=== PATIENT | male | born 1950 | race Caucasian/White ===

== ENCOUNTER 2017-08-25 02:52 | Inpatient (IN) | payer OTHER, MEDICARE ==
[~2017-08-25] VITALS: Ht 170.2 cm; Wt 74.9 kg
--- NOTE | 2017-08-25 02:57 | ED NEURO DEFICIT/STROKE ---
See Addendum History of Present Illness General Chief Complaint: Neuro Symptoms/ Deficit Stated Complaint: STROKE ALERT? Source: patient, EMS Exam Limitations: no limitations Vital Signs & Intake/Output Vital Signs & Intake/Output Vital Signs Date Time Temp Pulse Resp B/P B/P Pulse O2 O2 Flow FiO2 Mean Ox Delivery Rate 08/25 422 97.0 60 20 135/70 99 Room Air 08/25 309 97.5 64 20 181/78 98 Nasal 2.0L Cannula Allergies Coded Allergies: No Known Allergies (08/25/17) Reconcile Medications Aspirin (Aspirin*) 81 MG TAB.CHEW 1 TAB PO DAILY HEART (Reported) Atenolol 50 MG TABLET 1 TAB PO DAILY HTN (Reported) Atorvastatin Calcium (Lipitor) 10 MG TABLET 1 TAB PO DAILY CHOL (Reported) Glipizide 5 MG TABLET 1 TAB PO BID DM (Reported) Lisinopril 10 MG TABLET 1 TAB PO DAILY HTN (Reported) Sitagliptin Phos/Metformin HCl (Janumet 50-500 MG Tablet) 50 MG-500 MG TABLET 1 TAB PO DAILY DM (Reported) Triage Nurses Notes Reviewed? yes HPI: Patient presents for evaluation of left facial droop. patient last seen normal at 12:30AM. HX OF CVA. Patient himself offers no complaint at this time. With further questioning however the patient was not observed to be normal at 12:30 but he did answer a question normally at that time. The last time he was seen walking or engaging in any physical activity was about 5 to 6:00 in the afternoon. It seems that time of onset of symptoms sometime between 6 PM and 12 :30 AM. Past History Medical History Any Pertinent Medical History? see below for history Surgical History Surgical History: non-contributory Psychosocial History Tobacco Use: Current Daily Use Family History Hx Contributory? No Review of Systems Review of Systems Constitutional: Reports: no symptoms. EENTM: Reports: no symptoms. Respiratory: Reports: no symptoms. Cardiovascular: Reports: no symptoms. GI: Reports: no symptoms. Genitourinary: Reports: no symptoms. Musculoskeletal: Reports: no symptoms. Skin: Reports: no symptoms. Neurological/Psychological: Reports: see HPI. Hematologic/Endocrine: Reports: no symptoms. Immunologic/Allergic: Reports: no symptoms. All Other Systems: Reviewed and Negative Physical Exam Physical Exam General Appearance: see below Cranial Nerves: SEE BELOW Comments: Gen.: Well-nourished, well-developed, no acute respiratory distress. Head: Normocephalic, atraumatic. Eyes: Normal inspection bilaterally Ears: Normal inspection bilaterally Nose: Normal inspection Throat/mouth : Moist mucosa Neck: Supple, full range of motion, no goiter Heart: Regular rate and rhythm, no murmurs rubs or gallops Lungs: Clear to auscultation bilaterally with normal air entry Chest: Nontender Back: Normal range of motion Abdomen: Soft, nontender, nondistended, normal bowel sounds Extremities: Normal range of motion grossly, equal radial pulses, no cyanosis clubbing or edema Neurologic: Cranial nerves grossly intact, speech is clear Skin: warm and dry Psychiatric: Calm, cooperative, no apparent delusions or hallucinations Core Measures CVA/TIA Diagnosis: Yes NIH Stroke Scale NIH Stroke Scale Response Value Level of Consciousness alert 0 LOC Questions answers both correctly 0 LOC Commands obeys both correctly 0 Best Gaze normal 0 Visual Shetty no visual loss 0 Facial Paresis minor 1 Motor Arm - Left drift 1 Motor Arm - Right no drift 0 Motor Leg - Left no drift 0 Motor Leg - Right no drift 0 Limb Ataxia no ataxia 0 Sensory normal 0 Best Language no aphasia 0 Dysarthria mild/mod slurring words 1 Extinction and Inattention no neglect 0 Total 3 Sepsis Present: No Sepsis Focused Exam Completed? No Progress Differential Diagnosis: Toledo's Palsy, electrolyte imbalance, hypoglycemia, stroke Plan of Care: Orders Procedure Date/time Status Heart Healthy Diet 08/[address] in observation 08/25 0541 Active Misc Message 08/25 0532 Active ED Holding Orders 08/25 0532 Active Vital Signs 08/25 0532 Active Code Status 08/25 0532 Active Add-on Test (ER Only) 08/25 0319 Active TROPONIN LEVEL 08/25 0313 Complete ETHANOL 08/25 0313 Complete COMPREHENSIVE METABOLIC PANEL 08/25 0313 Complete PARTIAL THROMBOPLASTIN TIME 08/25 0256 Complete PROTHROMBIN TIME 08/25 0256 Complete CBC WITHOUT DIFFERENTIAL 08/25 0256 Complete EKG 08/25 0256 Active Laboratory Tests 08/25/17 0330: Anion Gap 13, Estimated GFR > 60, BUN/Creatinine Ratio 18.9, Glucose 276 H, Calcium 9.4, Total Bilirubin 0.5, AST 18, ALT 34, Alkaline Phosphatase 65, Troponin I < 0.01, Total Protein 6.1 L, Albumin 3.8, Globulin 2.3, Albumin/ Globulin Ratio 1.7, PT 10.6, INR 0.97, APTT 26, Serum Alcohol < 10.0 08/25/17 0313: CBC w Diff MAN DIFF ORDERED, RBC 4.57 L, MCV 95.9 H, MCH 31.9 H, MCHC 33.3, RDW 13.4, MPV 9.4, Gran % 53.8, Lymphocytes % 36.2, Monocytes % 6.9, Eosinophils % 2.4, Basophils % 0.7, Absolute Granulocytes 5.5, Segmented Neutrophils 52, Absolute Lymphocytes 3.7 H, Lymphocytes 38, Monocytes 5, Absolute Monocytes 0.7 H, Eosinophils 5, Absolute Eosinophils 0.2, Absolute Basophils 0.1, Platelet Estimate ADEQUATE, Polychromasia 1+, Poikilocytosis 1+, Ovalocytes FEW, [place] Cells 1+, Fld Total RBCs Counted 100 08/25/17 025: Sodium Cancelled, Potassium Cancelled, Chloride Cancelled, Carbon Dioxide Cancelled, Anion Gap Cancelled, BUN Cancelled, Creatinine Cancelled, BUN/ Creatinine Ratio Cancelled, Glucose Cancelled, Calcium Cancelled, Total Bilirubin Cancelled, AST Cancelled, ALT Cancelled, Alkaline Phosphatase Cancelled, Total Protein Cancelled, Albumin Cancelled, Globulin Cancelled, Albumin/Globulin Ratio Cancelled Diagnostic Imaging: Discussed w/RAD: CT Scan. Radiology Impression: PATIENT: NEELAM FARNSWORTH PRESENT AGE: 66 PATIENT ACCOUNT NO: [id number] : 48 LOCATION: [facility] ORDERING PHYSICIAN: Damion Toledo MD SERVICE DATE: 08/25/17 EXAM TYPE: CAT - CT HEAD WO IV CONTRAST EXAMINATION: CT HEAD WITHOUT CONTRAST CLINICAL INFORMATION: Left facial droop. COMPARISON: None TECHNIQUE: Contiguous axial imaging was performed from the skull base to vertex without intravenous administration of contrast. DLP: 646.12 mGy-cm FINDINGS: There is focal encephalomalacia from an old infarct of the left temporal occipital lobe. There is no evidence of acute intracranial hemorrhage or acute territorial infarction. No abnormal mass effect or midline shift is seen. Santos to white matter differentiation is well preserved. No extra- axial fluid collections are identified. There is atrophy with prominence of the ventricles and the sulci and hypodensity of the periventricular white matter due to chronic small vessel ischemic disease. There is vascular calcifications of the internal carotid arteries bilaterally. The osseous structures and soft tissues are normal. The mastoid air cells and visualized portions of the paranasal sinuses are well aerated. IMPRESSION: No acute intracranial pathology. This critical result was discussed with Dr. Toledo on 08/25/2017, 3:07 AM and it was ascertained that the content and urgency of the report was understood at the time of direct communication. DICTATED BY: Paul Lozano MD DATE/TIME DICTATED:303 CENTER MEDICAL SPECIALIST:DEYSI DATE/TIME TRANSCRIBED:08/25/17303 CONFIDENTIAL, DO NOT COPY WITHOUT APPROPRIATE AUTHORIZATION. <Electronically signed in Other Vendor System> SIGNED BY: Paul Lozano MD 08/25/17311 Initial ED EKG: NSR, rate (59) Comments: 08/25/2017 3:09:12 AM NO ACUTE FINDINGS ON HEAD CT. 08/25/2017 3:19:14 AM patient's case discussed with Dr. Jacobs who feels given the uncertain time of onset that this patient is not a TPA candidate. He would recommend however a CTA with possible endovascular intervention. 08/25/2017 4:31:03 AM patient is at baseline with no appreciable neurologic deficit.family agrees. Departure Departure Disposition: STILL A PATIENT Condition: Stable Clinical Impression Primary Impression: TIA (transient ischemic attack) Qualifiers: Transient cerebral ischemia type: unspecified Qualified Code: G45.9 - Transient cerebral ischemic attack, unspecified Departure Forms: Customer Survey General Discharge Information Admission Note Documentation of Exam: Documentation of any treatments & extenuating circumstances including Concerns Regarding Discharge (functional status, medication knowledge or non-compliance, living conditions, etc.) that warrant an admission rather than observation: Observation Note Spoke With: Angela Webber MD Patient In: Non-ED OBS Care Area Rationale for Observation: My rational for observation is as follows: Patient presents after transient left facial droop and left motor weakness. He has a history of a prior CVA. This patient is at high risk of a completed stroke and requires hospitalization for expedited evaluation of reversible causes such as carotid artery disease or cardioembolic phenomenon. Patient should have continuous cardiac monitoring for the possibility of transient atrial fibrillation. Neurology consult should be obtained. Medical management should be optimized. Cardiology consultation to be considered for echocardiogram. If symptoms recur then physical therapy consultation to be considered. .
--- NOTE | 2017-08-25 03:12 | CT SCAN REPORT ---
EXAMINATION: CT HEAD WITHOUT CONTRAST CLINICAL INFORMATION: Left facial droop. COMPARISON: None TECHNIQUE: Contiguous axial imaging was performed from the skull base to vertex without intravenous administration of contrast. DLP: 646.12 mGy-cm FINDINGS: There is focal encephalomalacia from an old infarct of the left temporal occipital lobe. There is no evidence of acute intracranial hemorrhage or acute territorial infarction. No abnormal mass effect or midline shift is seen. Santos to white matter differentiation is well preserved. No extra-axial fluid collections are identified. There is atrophy with prominence of the ventricles and the sulci and hypodensity of the periventricular white matter due to chronic small vessel ischemic disease. There is vascular calcifications of the internal carotid arteries bilaterally. The osseous structures and soft tissues are normal. The mastoid air cells and visualized portions of the paranasal sinuses are well aerated. IMPRESSION: No acute intracranial pathology. This critical result was discussed with Dr. Toledo on 08/25/2017, 3:07 AM and it was ascertained that the content and urgency of the report was understood at the time of direct communication.
[2017-08-25] MEDS ORDERED: ASPIRIN81 M4 PO (03:15)
[2017-08-25] MEDS ORDERED: ATENOLOL50 M1 PO (03:16)
[2017-08-25] MEDS ORDERED: JANUMET 50-5001 EACH PO (03:16)
[2017-08-25] MEDS ORDERED: LIPITOR10 M1 PO (03:16)
[2017-08-25] MEDS ORDERED: LISINOPRIL10 M1 PO (03:17)
[2017-08-25] MEDS ORDERED: GLIPIZIDE5 M2 PO (03:17)
[2017-08-25 03:23] LABS: ABSOLUTE BASOPHIL COUNT 0.1 /CUMM (0.0-0.2); ABSOLUTE EOSINOPHIL COUNT 0.2 /CUMM (0.0-0.7); ABSOLUTE GRANULOCYTE CT 5.5 /CUMM (1.4-6.5); ABSOLUTE LYMPH COUNT 3.7 /CUMM (1.2-3.4); ABSOLUTE MONOCYTE COUNT 0.7 /CUMM (0.10-0.60); BASOPHIL % 0.7 % (0.0-2.0); EOSINOPHIL % 2.4 % (0-5); GRANULOCYTE % 53.8 % (42.2-75.2); HEMATOCRIT 43.8 % (42-52); MEAN CORPUSCULAR HGB 31.9 PG (27.0-31.0); MEAN CORPUSCULAR HGB CONC 33.3 G/DL (33.0-37.0); MEAN CORPUSCULAR VOLUME 95.9 FL (80.0-94.0); MEAN PLATELET VOLUME 9.4 FL (7.4-10.4); PLATELET COUNT 177 /CUMM (130-400); RBC DISTRIBUTION WIDTH 13.4 % (11.5-14.5); RED BLOOD CELL CT 4.57 /CUMM (4.70-6.10); WHITE BLOOD CELL COUNT 10.3 /CUMM (4.8-10.8)
[2017-08-25 03:43] LABS: PT 10.6 SEC (9.4-12.5); PTT 26 SEC (25-37)
--- NOTE | 2017-08-25 05:18 | CT SCAN REPORT ---
EXAMINATION: CT ANGIOGRAM HEAD CLINICAL INFORMATION: Left facial droop. COMPARISON: None TECHNIQUE: Test bolus sequences followed by intravenous administration 95 mL of Optiray 320 intravenous contrast. Axial images obtained from the skull base to the vertex.. The data was processed at the cardiology technologist's workstation for generation of MIP sequences. (There was no Three-dimensional volume rendered reformatted images were generated at an offline 3-D workstation.) DLP: 1476.16 mGy-cm FINDINGS: HEAD: Patient previously had a noncontrast CT earlier today which demonstrated an old infarct in the left temporal parietal lobe with focal encephalomalacia. CRANIAL CTA: There is normal opacification of the major intracranial vessels. No acute proximal large vessel occlusion, focal flow-limiting stenosis, or saccular intracranial aneurysm is identified. No abnormal parenchymal enhancement or regional oligemia is visualized. There are vascular wall calcification of the internal carotid arteries at the carotid artery siphon bilaterally there is no stenosis of the vessels. There is normal enhancement of the major intracranial venous structures. IMPRESSION: 1. Old left temporal occipital infarct. 2. No acute intracranial abnormality. No acute abnormality CTA head.
--- NOTE | 2017-08-25 05:40 | History & Physical ---
Na TRIANA,Magaly 08/25/17 0539: General Information and HPI MD Statement: I have seen and personally examined NEELAM FARNSOWRTH and documented this H&P. The patient is a 66 year old M who presented with a patient stated chief complaint of [Lt facial droop]. Source of Information: patient, family Exam Limitations: no limitations History of Present Illness: 66 years old male with PMH of CVA in the OR while having surgery for prostate cancer (October 2010),MT in 1999, HLD,DM, melanoma, presents to [facility] with CC of left facial droop. Patient is seen normal at 12: 30 a.m., as per the patient he had chest pain which woke him up from sleep in the early hours this morning. He describes it as mid chest 3/10 dull chest pain. It resolved spontaneously. Later on the patient was found by his family on the floor he think he had slept from the couch which he was sleeping on. He felt weak. But denies any focal numbness or weakness he does not recall any slurring or facial droop. During the encounter the patient denied any difficulty speaking, any focal numbness or weakness or other complaints. As per the family over the phone Patient has dementia and is constantly yelling at home however this time he was yelling for help. When they reached him he was slurring his speech, however he was able to understand what they are saying and answer appropriately. He was not able to get up, he also could not feel his left leg and arm. They called 911. Upon reaching the hospital he was having left facial droop. By the time the patient was examined by the doctor he did not have any symptoms. Of note the patient has history of CVA and MT 10 years ago, for which she was hospitalized in [facility]. Patient does not recall any residual weakness or numbness after his previous CVA Vital signs on admission:Blood pressure 181/78, pulse 64, temperature 97.5, bedside pulse ox 98 on 2 L nasal oxygen Labs on admission: CBC showed WBC 10.3, hemoglobin 14.6, hematocrit 43.8, platelets 177, sodium 141, potassium 3.8, BUN 17, creatinine 0.9, glucose 276, ALT 34, AST 15,INR 0.97, serum alcohol less than [address]:No acute intracranial pathology. Head CTA: 1. Old left temporal occipital infarct. 2. No acute intracranial abnormality. No acute abnormality CTA head. Allergies/Medications Allergies: Coded Allergies: naproxen (From ALEVE) (COMA 08/25/17) Home Med list Aspirin (Aspirin*) 81 MG TAB.CHEW 1 TAB PO DAILY HEART (Reported) Atenolol 50 MG TABLET 1 TAB PO DAILY HTN (Reported) Atorvastatin Calcium (Lipitor) 10 MG TABLET 1 TAB PO DAILY CHOL (Reported) Glipizide 5 MG TABLET 1 TAB PO BID DM (Reported) Lisinopril 10 MG TABLET 1 TAB PO DAILY HTN (Reported) Sitagliptin Phos/Metformin HCl (Janumet 50-500 MG Tablet) 50 MG-500 MG TABLET 1 TAB PO DAILY DM (Reported) Past History Travel History Traveled to [place] past 21 day No Medical History Neurological: CVA EENT: NONE Cardiovascular: myocardial infarction, CHOL Respiratory: NONE Gastrointestinal: NONE Hepatic: NONE Renal: NONE Musculoskeletal: NONE Psychiatric: NONE Endocrine: DM Surgical History Surgical History: non-contributory Past Family/Social History Family History Relations & Conditions if any MOTHER Relation not specified for: FH: diabetes mellitus FH: heart attack Psychosocial History Smoking Status: Current Everyday Smoker (20 PPY) ETOH Use: occasional use Illicit Drug Use: denies illicit drug use Functional Ability ADLs Independent: dressing, eating, toileting, bathing. IADLs Independent: shopping, housework, finances, food prep, telephone, transportation , medication admin. Review of Systems Review of Systems Constitutional: Reports: malaise, weakness. Cardiovascular: Reports: chest pain. Denies: orthopena, palpitations, peripheral edema, syncope. Respiratory: Denies: no symptoms. GI: Denies: no symptoms. Musculoskeletal: Reports: back pain. Neurological/Psychological: Reports: weakness. Exam & Diagnostic Data Last 24 Hrs of Vital Signs/I&O Vital Signs Date Time Temp Pulse Resp B/P B/P Pulse O2 O2 Flow FiO2 Mean Ox Delivery Rate 08/25 0423 97.0 60 20 135/70 99 Room Air 08/25 0310 97.5 64 20 181/78 98 Nasal 2.0L Cannula Intake & Output 08/25 0800 08/25 0000 08/24 1600 Intake Total Output Total 150 Balance -150 Output, Urine 150 Patient 190 lb Weight Physical Exam General Appearance Alert, Oriented X3, Cooperative, No Acute Distress HEENT Atraumatic, PERRLA, EOMI, Mucous Membr. moist/pink Neck Supple, No JVD Cardiovascular Regular Rate, Normal S1, Normal S2, No Murmurs Lungs Clear to Auscultation Abdomen Normal Bowel Sounds, Soft, No Tenderness Neurological Normal Speech, Strength at 5/5 X4 Ext, Normal Tone, Sensation Intact, Cranial Nerves 3-12 NL, Reflexes 2+ Extremities No Clubbing, No Cyanosis, No Edema, 3 small 2X2 erythematous patches on the left LE Vascular Normal Pulses Assessment/Plan Assessment: 66 years old male with PMH of CVA,HTN,MT, HLD,DM presents to [facility] with CC of left facial droop. Patient is seen normal at 12: 30 a.m., as per the patient he had chest pain which woke him up from sleep in the early hours this morning. He describes it as mid chest 3/10 dull chest pain. It resolved spontaneously. Later on the patient was found by his family on the floor he think he had slept from the couch which he was sleeping on. He felt weak. But denies any focal numbness or weakness he does not recall any slurring or facial droop. Most likely his symptoms are due to TIA since it resolved completely and CT and CTA did not find any focal lesions Problem list: TIA Chest pain History of CVA and MT Hypertension Hyperlipidemia Diabetes mellitus Plan: Admit to telemetry Continuous telemetry monitoring Vitals every shift Neurochecks every 2 hours Neurology consult appreciated Continue home meds including atenolol and lisinopril Hold oral antidiabetic Insulin sliding scale Fingerstick glucose Increase the dose of atorvastatin to 40 mg daily Consider MRI brain Obtain medical records from [facility] and his PCP Consistent carbohydrate diet DVT prophylaxis with subcutaneous heparin DNR/DNI as per conversation with his daughter and (does not have [facility] ) As Ranked By This Provider Problem List: 1. TIA (transient ischemic attack) Qualifiers Transient cerebral ischemia type: unspecified Qualified Code: G45.9 - Transient cerebral ischemic attack, unspecified Core Measures/Misc (12/23) Acute Coronary Syndrome ACS Diagnosis: No Congestive Heart Failure Congestive Heart Failure Diagnosis No Cerebrovascular Accident CVA/TIA Diagnosis: Yes NIH Stroke Scale: Total 0 Date Last Known Well: 08/25/17 Time Last Known Well: 123 Symptom Start Date: 08/25/17 Symptom Start Time: 1230 Swallow Evaluation Pass Current/Past Hx AFib/AFlutter No VTE (View Protocol) VTE Risk Factors Age>40 No Mechanical VTE Prophylaxis d/t N/A MechProphylax Ordered No VTE Pharm Prophylaxis d/t NA PharmProphylax ordered Sepsis (View protocol) Sepsis Present: No Doron Dunbar MD 08/25/17 0558: Resident Review Statement Resident Statement: discussed with internet ecommerce specialist, agreed with internet ecommerce specialist, reviewed EMR data (avail), reviewed images, amended to note Other Findings: 66 yo M with pmh of MT (1999), prostate cancer s/p surgery, ?CVA on the table ( October 2010), short term memory loss since then, DM, kidney stones, melanoma on his hand, HLD, (denied HTN), was BIBA for slurring of speech, left side weakness. Patient has dementia, does NOT have insight regarding his full medical condition, and information was obtained from patient (who gave conflicting story gimself and appeared confused), his daughter Kinjal and his . He yells every night and can be found wandering over the floor overnight too, at baseline. He takes ASA 81 mg daily. Early this morning (past midnight), he was found yelling for help and was on the floor. His speech sounded slurred for the questions he answered. He was able to compreheld the words though. He apperantly was using appropriate words and on EMT arrival on scene, and was brought in to [facility] for further evaluation. He also was not being able to move his entire left side of the body (upper and lower extremities). In the ED, the family and EMT noted left sided facial droop. He got CT scan and by that time, his facial droop was already better and then his weakness of left side (upper and lower extremities) were already better. Patient denied dizziness, fall, head-strike, fever/chills, incontinence, but family mentioned significant weight loss recently- q3mo, last one was 3 mo ago ( 200 to 168 lb). PMH- as noted above PSH-for prostate cancer, b/l carpel tunnel, neck disc surgery, cataract He smokes "like a chimney"/"constantly", has not quit per his daughter He has coffee all the time with his smoking. EtOH- "Not a drinker" Neurologist- Dr Ramos PCP- Dr Maurisio Jones Product Manager Financial Services- Dr Yobani Adler Vitals, labs, imaging as noted above. EKG: SR with RBBB (old change), no new ST- T changes. In the ED, a stroke alert was made, and plain CT of head was done, which did not reveal any bleed, and then a CTA of head and neck was done, again, not revealing any acute thrombus. Thus patient was [admitted/observed] in the telemetry floor for the management of following issues: #TIA -tele monitoring -ASA -Plavix -neuro consult -Echo with aortic arch -Cardotic Vertebral Doppler -NIH neutochecks q2 hr, passed swallow eval -PT/OT eval -Further imaging (e.g. MRI) per neurology -Lipid panel, TFT, HbA1c for further risk stratification -Statin increased from 10 mg to 80 mg #Rest of his home meds were continued. Oral hypoglycemics held, Insulin SS. #Housekeeping: Diet: Diabetic DVT ppx: SQ Heparin Code status: Full code, until family brings paper or further info can be obtained about code status. Family menioned about DNR/DNI. Needs further clarification. Joe Saha MD 08/25/17 2310: Attending MD Review Statement Attending Statement Attending MD Statement: examined this patient, discuss w/resident/PA/CHICLE GRINDER FEEDER, agreed w/resident/PA/CHICLE GRINDER FEEDER, discussed with family, reviewed EMR data (avail), discussed with nursing, reviewed images, amended to note Attending Assessment/Plan: The patient is a 66 yo male with h/o prostate ca and subsequent CVA (2010), HTN, HL, CAD (MT in 1999), and melanoma who presented in the ED with c/o left sided weakness. Chart states chest pain, however patient and family deny at the time of my exam. Hes left sided weakness resolved in ED. At present no c/o weakness, chest pain, or dyspnea, however family questions slight facial drooping (not detected on my exam). Physical Exam: HEENT: jonathan- moist mucosa, tongue midline Neck: no bruits or JVD Chest: clear Cor: RRR nl S1, S2 w/o murm Abd: BS+, soft, NT Ext: no edema, pulses 1+ Neuro: non-focal, no facial droop on my exam, gait not tested Derm: + eczema on right pre-tibial region Tests/Labs- as above Impression/Plan: #S/P TIA- probable TIA with transient left sided weakness. Family brought in records from prior CVA in 2010. He had a surgical procedure (prostate) and was noted to have unusual behavior post discharge. CVA was discovered post discharge. He had OP workup by neurology. 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 Also diagnosed with dementia. Plan: Bring in to telemetry service as Observation patient. MRI tomorrow/carotid US today. Continue ASA/PLavix/Atorvastatin (high dose) at present. Continue telemetry and neuro checks. Cardiology consult - Dr. Noyola tomorrow. #DM2- family suggests that his diabetes is poorly controlled at home. He is on oral agents, however does not follow diet. They state his Hgb A1C is usually very high. Glu 265, 302. Plan: Continue sliding scale insulin at present, however will adjust insulin in morning. Would check Hgb A1C. #Lower Extremity Dermatitis- patch appears to represent eczema. Plan: Trial of triamcinolone cream bid. #CAD- ? chest pain noted on ED chart, however both patient and family members deny. Plan: Continue usual meds- Cardiology consult Dr. Noyola. Check serial troponin I levels. ECHO
[2017-08-25 06:56] VITALS: BP 154/74
[2017-08-25 14:25] VITALS: BP 134/72
--- NOTE | 2017-08-25 14:54 | ULTRASOUND REPORT ---
EXAMINATION: US DUPLEX CAROTID, BILATERAL CLINICAL INDICATION: TIA COMPARISON: None. TECHNIQUE: Real-time ultrasound and Doppler techniques (integrating B-mode 2D vascular images, Doppler spectral analysis and color flow Doppler imaging) were utilized to interrogate the extracranial carotid and vertebral arteries bilaterally. The degree of stenosis determined by criteria similar to NASCET. FINDINGS: On the right, there is a small amount of calcified plaque within the carotid bulb and origin of the internal and external carotid arteries.. In the distal CCA, the peak systolic velocity is 75 cm/sec. In the proximal ICA, the peak systolic velocity is 73 cm/sec, and the end diastolic velocity is 23 cm/sec. The peak systolic velocity of the external carotid artery is 118 cm/s. On the left, there is a small amount of calcified plaque seen within the bulb and extending into the origin of the internal carotid artery. In the distal CCA, the peak systolic velocity is 92 cm/sec. In the proximal ICA, the peak systolic velocity is 59 cm/sec, and the end diastolic velocity is 19 cm/sec. Peak systolic velocity of the external carotid artery is 93 cm/s. The vertebral arteries show antegrade flow with normal waveforms bilaterally. IMPRESSION: 1. The right internal carotid artery shows no hemodynamically significant stenosis. 2. The left internal carotid artery shows no hemodynamically significant stenosis. Right and left internal carotid artery flow in the 0-49% stenosis category by duplex Doppler spectral waveform analysis.
--- NOTE | 2017-08-25 18:14 | Cons- Neurology ---
General Information and HPI Consulting Request Date of Consult: 08/25/17 Requested By: Angela Webber MD History of Present Illness: 66-year-old male yesterday found on the floor in his room at home It is unclear how long he was on the ground until he was found He apparently somehow called a few feet to the window When he was found he was awake but had weakness left upper and left lower extremity It is unclear if he fell or if he initially lost consciousness Left upper and left lower extremity weakness seemed to last for approximately a few hours and then resolved When found he was speaking There was no head injury . The initial note he had chest pains which awakened him There was no history of numbness or sensory loss Daughter state that he often shouts and seems to move while sleeping and often states that he is being chased Per notes when emergency personnel arrived he had a left facial weakness Notes also state that he could not feel his left leg and arm which patient denies Symptoms seem to resolve at the time of his visit to the ED Daughter state that he had a cerebrovascular accident in 2010 although it was unclear if it caused any focal weakness. Daughter state that it did cause memory difficulties and subsequently patient had cognitive loss Patient has not had similar symptoms to the current event previously Allergies/Medications Allergies: Coded Allergies: naproxen (From ALEVE) (COMA 08/25/17) Home Med List: Aspirin (Aspirin*) 81 MG TAB.CHEW 1 TAB PO DAILY HEART (Reported) Atenolol 50 MG TABLET 1 TAB PO DAILY HTN (Reported) Atorvastatin Calcium (Lipitor) 10 MG TABLET 1 TAB PO DAILY CHOL (Reported) Glipizide 5 MG TABLET 1 TAB PO BID DM (Reported) Lisinopril 10 MG TABLET 1 TAB PO DAILY HTN (Reported) Sitagliptin Phos/Metformin HCl (Janumet 50-500 MG Tablet) 50 MG-500 MG TABLET 1 TAB PO DAILY DM (Reported) Current Medications: Current Medications Sig/Ra Start time Last Medication Dose Route Stop Time Status Admin Aspirin 81 MG DAILY 08/25 899 AC 08/25 PO 1429 Aspirin 325 MG ONCE ONE 08/25 599 DC 08/25 PO 08/25 0601 0756 Atenolol 50 MG DAILY 08/25 899 AC 08/25 PO 1422 Atorvastatin Calcium 80 MG DAILY 08/25 899 AC 08/25 PO 1422 Clopidogrel Bisulfate 75 MG ONCE ONE 08/25 899 DC 08/25 PO 08/25 0901 1429 Heparin Sodium 5,000 UNIT Q8 08/25 2200 AC (Porcine) SC Insulin Aspart 0 TIDAC 08/25 1200 AC 08/25 SC 1744 Lisinopril 10 MG DAILY 08/25 0900 AC 08/25 PO 1423 Magnesium Oxide 400 MG BID 08/25 2100 AC PO 08/26 0901 Magnesium Oxide 400 MG ONE ONE 08/25 1445 DC 08/25 PO 08/25 1446 1600 Review of Systems Review of Systems: Denies headache, diplopia, vertigo, current chest pain, breathing difficulties, nausea vomiting, incontinence, swelling Daughter state that he has vivid dreams and yells out at night No recent fevers or rashes or head trauma Other systems reviewed and negative Past History Travel History Traveled to [place] past 21 day No Medical History Blood Transfusion Hx: No Neurological: CVA EENT: NONE Cardiovascular: myocardial infarction, CHOL Respiratory: NONE Gastrointestinal: NONE Hepatic: NONE Renal: NONE Musculoskeletal: NONE Psychiatric: NONE Endocrine: DM Blood Disorders: NONE Cancer(s): melanoma 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 IADLs Independent: shopping, housework, finances, food prep, telephone, transportation , medication admin. Exam & Diagnostic Data Vital Signs and I&O Vital Signs Date Time Temp Pulse Resp B/P B/P Pulse O2 O2 Flow FiO2 Mean Ox Delivery Rate 08/25 1425 98.1 64 20 134/72 97 Room Air 08/25 1423 63 154/74 08/25 1422 63 154/74 08/25 0702 Nasal 2.0L Cannula 08/25 0656 98.9 63 18 154/74 98 Nasal 2.0L Cannula 08/25 0423 97.0 60 20 135/70 99 Room Air 08/25 0310 97.5 64 20 181/78 98 Nasal 2.0L Cannula Intake & Output 08/25 1600 08/25 0800 08/25 0000 Intake Total Output Total 150 Balance -150 Output, Urine 150 Patient 165 lb 1901 lb Weight Weight Standing Scale Measurement Method Physical Exam: Alert No dysarthria Follows all commands Comfortable Oriented to place and day Heart sounds normal, no carotid bruits, distal pulses intact Extraocular movements full, no facial weakness, no facial sensory loss, fundi benign, visual sparks intact, palate tongue and shoulders intact, hearing grossly intact Normal tone and strength upper and lower extremities No sensory loss to light touch Deep tendon reflexes 1+ bilateral Coordinative functions and gait intact Last 48 Hours of Lab Results: Laboratory Tests 08/25 08/25 08/25 0558 0330 0313 Chemistry Sodium (137 - 145 mmol/L) 141 Potassium (3.5 - 5.1 mmol/L) 3.8 Chloride (98 - 107 mmol/L) 105 Carbon Dioxide (22 - 30 mmol/L) 22 Anion Gap (5 - 16) 13 BUN (9 - 20 mg/dL) 17 Creatinine (0.7 - 1.2 mg/dL) 0.9 Estimated GFR (>60 ml/min) > 60 BUN/Creatinine Ratio (7 - 25 %) 18.9 Glucose (65 - 99 mg/dL) 276 H Hemoglobin A1c (4.2 - 5.8 %) Cancelled Pending Calcium (8.4 - 10.2 mg/dL) 9.4 Magnesium (1.6 - 2.3 mg/dL) 1.5 L Total Bilirubin (0.2 - 1.3 mg/dL) 0.5 AST (17 - 59 U/L) 18 ALT (21 - 72 U/L) 34 Alkaline Phosphatase (< 127 U/L) 65 Troponin I (<0.11 ng/ml) < 0.01 Total Protein (6.3 - 8.2 g/dL) 6.1 L Albumin (3.5 - 5.0 g/dL) 3.8 Globulin (1.9 - 4.2 gm/dL) 2.3 Albumin/Globulin Ratio (1.1 - 2.2 %) 1.7 Triglycerides (<150 mg/dL) Cancelled 95 Cholesterol (< 200 MG/DL) Cancelled 116 LDL Cholesterol, Calc (65 - 129 mg/dL) Cancelled 54 L HDL Cholesterol (40 - 60 mg/dL) Cancelled 43 Cholesterol/HDL Ratio (0.00 - 4.88 %) Cancelled 3 TSH (0.270 - 4.200 uIU/mL) Cancelled 1.860 Free T4 (0.78 - 2.44 ng/dL) Cancelled 1.20 Coagulation PT (9.4 - 12.5 SEC) 10.6 INR (0.90 - 1.17) 0.97 APTT (25 - 37 SEC) 26 Hematology CBC w Diff MAN DIFF ORDERED WBC (4.8 - 10.8 /CUMM) 10.3 RBC (4.70 - 6.10 /CUMM) 4.57 L Hgb (14.0 - 18.0 G/DL) 14.6 Hct (42 - 52 %) 43.8 MCV (80.0 - 94.0 FL) 95.9 H MCH (27.0 - 31.0 PG) 31.9 H MCHC (33.0 - 37.0 G/DL) 33.3 RDW (11.5 - 14.5 %) 13.4 Plt Count (130 - 400 /CUMM) 177 MPV (7.4 - 10.4 FL) 9.4 Gran % (42.2 - 75.2 %) 53.8 Lymphocytes % (20.5 - 51.1 %) 36.2 Monocytes % (1.7 - 9.3 %) 6.9 Eosinophils % (0 - 5 %) 2.4 Basophils % (0.0 - 2.0 %) 0.7 Absolute Granulocytes (1.4 - 6.5 /CUMM) 5.5 Segmented Neutrophils (42.2 - 75.2 %) 52 Absolute Lymphocytes (1.2 - 3.4 /CUMM) 3.7 H Lymphocytes (20.5 - 51.1 %) 38 Monocytes (1.7 - 9.3 %) 5 Absolute Monocytes (0.10 - 0.60 /CUMM) 0.7 H Eosinophils (0 - 5.0 %) 5 Absolute Eosinophils (0.0 - 0.7 /CUMM) 0.2 Absolute Basophils (0.0 - 0.2 /CUMM) 0.1 Platelet Estimate (ADEQUATE) ADEQUATE Polychromasia 1+ Poikilocytosis 1+ Ovalocytes FEW Nelda Cells 1+ Other Body Source Fld Total RBCs Counted (%) 100 Toxicology Serum Alcohol (<10 MG/DL) < 10.0 08/25 0256 Chemistry Sodium Cancelled Potassium Cancelled Chloride Cancelled Carbon Dioxide Cancelled Anion Gap Cancelled BUN Cancelled Creatinine Cancelled BUN/Creatinine Ratio Cancelled Glucose Cancelled Calcium Cancelled Total Bilirubin Cancelled AST Cancelled ALT Cancelled Alkaline Phosphatase Cancelled Total Protein Cancelled Albumin Cancelled Globulin Cancelled Albumin/Globulin Ratio Cancelled Imaging/Other Studies: Carotid ultrasound IMPRESSION: 1. The right internal carotid artery shows no hemodynamically significant stenosis. 2. The left internal carotid artery shows no hemodynamically significant stenosis. CT CTA IMPRESSION: 1. Old left temporal occipital infarct. 2. No acute intracranial abnormality. No acute abnormality CTA head. Assessment/Plan Assessment: Transient left-sided weakness Symptoms currently resolved No vascular occlusion on CTA Symptoms suggest a TIA, but since no witness could also have been a post Juan's paralysis Recommendations: Electroencephalogram to assess for possibility of focal seizure Cardiac evaluation to assess for possible paroxysmal atrial fibrillation Consult Acknowledgment - Thank you for your consult request.
--- NOTE | 2017-08-25 21:33 | PN- Att Addend ---
Attending Addendum Attending Brief Note S: The patient has experienced no further left sided weakness since presentation. Family still feels slight facial droop. O: VS: Vital Signs Date Time Temp Pulse Resp B/P B/P Pulse O2 O2 Flow FiO2 Mean Ox Delivery Rate 08/25 1425 98.1 64 20 134/72 97 Room Air 08/25 1423 63 154/74 08/25 1422 63 154/74 08/25 0702 Nasal 2.0L Cannula 08/25 0656 98.9 63 18 154/74 98 Nasal 2.0L Cannula 08/25 0423 97.0 60 20 135/70 99 Room Air 08/25 0310 97.5 64 20 181/78 98 Nasal 2.0L Cannula Intake & Output 08/25 1600 08/25 0800 08/25 0000 Intake Total 600 Output Total 150 Balance 600 -150 Intake, Oral 600 Output, Urine 150 Patient 165 lb 1901 lb Weight Weight Standing Scale Measurement Method Current Medications Sig/Ra Start time Last Medication Dose Route Stop Time Status Admin Aspirin 81 MG DAILY 08/25 0900 AC 08/25 PO 1429 Aspirin 325 MG ONCE ONE 08/25 0600 DC 08/25 PO 08/25 0601 0756 Atenolol 50 MG DAILY 08/25 0900 AC 08/25 PO 1422 Atorvastatin Calcium 80 MG DAILY 08/25 0900 AC 08/25 PO 1422 Clopidogrel Bisulfate 75 MG ONCE ONE 08/25 0900 DC 08/25 PO 08/25 0901 1429 Heparin Sodium 5,000 UNIT Q8 08/25 2200 AC 08/25 (Porcine) DC 2016 Insulin Aspart 0 TIDAC 08/25 1200 AC 08/25 SC 174 Lisinopril 10 MG DAILY 08/25 0900 AC 08/25 PO 1423 Magnesium Oxide 400 MG BID 08/25 2100 AC 08/25 PO 08/26 0901 2017 Magnesium Oxide 400 MG ONE ONE 08/25 1445 DC 08/25 PO 08/25 1446 1600 Physical Exam: HEENT: jonathan- moist muosa, tongue midline Neck: no bruits or JVD Chest: clear Cor: RRR nl S1, S2 w/o murm Abd: BS+, soft, NT Ext: no edema, pulses 1+ Neuro: non-focal, no facial droop on my exam, gait not tested Derm: + eczema on right pre-tibial region Labs/Tests: Laboratory Tests 08/25/17 0558: Hemoglobin A1c Cancelled, Triglycerides Cancelled, Cholesterol Cancelled, LDL Cholesterol, Calc Cancelled, HDL Cholesterol Cancelled, Cholesterol/HDL Ratio Cancelled, TSH Cancelled, Free T4 Cancelled 08/25/17 0330: Anion Gap 13, Estimated GFR > 60, BUN/Creatinine Ratio 18.9, Glucose 276 H, Hemoglobin A1c Pending, Calcium 9.4, Magnesium 1.5 L, Total Bilirubin 0.5, AST 18, ALT 34, Alkaline Phosphatase 65, Troponin I < 0.01, Total Protein 6.1 L, Albumin 3.8, Globulin 2.3, Albumin/Globulin Ratio 1.7, Triglycerides 95, Cholesterol 116, LDL Cholesterol, Calc 54 L, HDL Cholesterol 43, Cholesterol/ HDL Ratio 3, TSH 1.860, Free T4 1.20, PT 10.6, INR 0.97, APTT 26, Serum Alcohol < 10.0 08/25/17 0313: CBC w Diff MAN DIFF ORDERED, RBC 4.57 L, MCV 95.9 H, MCH 31.9 H, MCHC 33.3, RDW 13.4, MPV 9.4, Gran % 53.8, Lymphocytes % 36.2, Monocytes % 6.9, Eosinophils % 2.4, Basophils % 0.7, Absolute Granulocytes 5.5, Segmented Neutrophils 52, Absolute Lymphocytes 3.7 H, Lymphocytes 38, Monocytes 5, Absolute Monocytes 0.7 H, Eosinophils 5, Absolute Eosinophils 0.2, Absolute Basophils 0.1, Platelet Estimate ADEQUATE, Polychromasia 1+, Poikilocytosis 1+, Ovalocytes FEW, Nelda Cells 1+, Fld Total RBCs Counted 100 08/25/17 0256: Sodium Cancelled, Potassium Cancelled, Chloride Cancelled, Carbon Dioxide Cancelled, Anion Gap Cancelled, BUN Cancelled, Creatinine Cancelled, BUN/ Creatinine Ratio Cancelled, Glucose Cancelled, Calcium Cancelled, Total Bilirubin Cancelled, AST Cancelled, ALT Cancelled, Alkaline Phosphatase Cancelled, Total Protein Cancelled, Albumin Cancelled, Globulin Cancelled, Albumin/Globulin Ratio Cancelled Carotid US: IMPRESSION: 1. The right internal carotid artery shows no hemodynamically significant stenosis. 2. The left internal carotid artery shows no hemodynamically significant stenosis. Right and left internal carotid artery flow in the 0-49% stenosis category by duplex Doppler spectral waveform analysis. Impression/Plan: #S/P TIA- probable TIA with transient left sided weakness. Family brought in records from prior CVA in 2010. He had a surgical procedure (prostate) and was noted to have unusual behavior post discharge. CVA was discovered post discharge. He had OP workup by neurology. 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 Also diagnosed with dementia. Plan: MRI tomorrow. Continue ASA/PLavix/Atorvastatin (high dose) at present. Continue telemetry and neuro checks. Cardiology consult - Dr. Noyola tomorrow. #DM2- family suggests that his diabetes is poorly controlled at home. He is on oral agents, however does not follow diet. They state his Hgb A1C is usually very high. Glu 265, 302. Plan: Continue sliding scale insulin at present, however will adjust insulin in morning. Would check Hgb A1C. #Lower Extremity Dermatitis- patch appears to represent eczema. Plan: Trial of triamcinolone cream bid.
[2017-08-25 22:15] VITALS: BP 118/62
--- NOTE | 2017-08-26 07:05 | PN- Housestaff ---
See Addendum Subjective Follow-up For: cva Tele-Events Since Last Visit: sinus esther/sinus rhythm, HR 50s-60s, no events Subjective: no complaints this morning, left sided weakness has improved Review of Systems Constitutional: Reports: see HPI. Objective Last 24 Hrs of Vital Signs/I&O Vital Signs Date Time Temp Pulse Resp B/P B/P Pulse O2 O2 Flow FiO2 Mean Ox Delivery Rate 08/26 0757 64 140/82 08/26 0757 64 140/82 08/26 0706 98.1 67 18 118/70 94 Room Air 08/25 2215 97.8 88 18 118/62 96 Room Air 08/25 1425 98.1 64 20 134/72 97 Room Air 08/25 1423 63 154/74 08/25 1422 63 154/74 Intake & Output 08/26 1600 08/26 0800 08/26 0000 Intake Total 220 220 Output Total Balance 220 220 Intake, Oral 220 220 Patient 75.778 kg Weight Physical Exam General Appearance: Alert, Oriented X3, Cooperative, No Acute Distress, Mild Distress Cardiovascular: Regular Rate, Normal S1, Normal S2, No Murmurs Lungs: Clear to Auscultation, Normal Air Movement Abdomen: Normal Bowel Sounds, Soft, No Tenderness, No Masses Neurological: Normal Speech, Strength at 5/5 X4 Ext, Normal Tone, Sensation Intact, Cranial Nerves 3-12 NL Extremities: No Clubbing, No Cyanosis, No Edema, Normal Pulses Current Medications: Current Medications Sig/Ra Start time Last Medication Dose Route Stop Time Status Admin Aspirin 81 MG DAILY 08/25 09 AC 08/26 PO 0754 Atenolol 50 MG DAILY 08/25 0900 AC 08/26 PO 0757 Atorvastatin Calcium 80 MG DAILY 08/25 0900 AC 08/26 PO 0754 Clopidogrel Bisulfate 75 MG DAILY 08/26 0914 AC 08/26 PO 1031 Heparin Sodium 5,000 UNIT Q8 08/25 2200 AC 08/26 (Porcine) SC 0552 Insulin Aspart 0 TIDAC 08/25 1200 AC 08/26 SC 0753 Lisinopril 10 MG DAILY 08/25 0900 AC 08/26 PO 0757 Magnesium Oxide 400 MG BID 08/25 2100 DC 08/26 PO 08/26 0901 0754 Magnesium Oxide 400 MG ONE ONE 08/25 1445 DC 08/25 PO 08/25 1446 1600 Triamcinolone 1 [place]UC[place] BID 08/26 0900 AC 08/26 Acetonide [facility] 0757 Assessment/Plan Assessment: 66 year old male with PMH of CVA, HTN, MN, HLD, and DM presented left hemiplegia admitted for stroke evaluation. His symptoms improved but MRI demonstrates an acute right basal ganglia infarction. CVA Continue aspirin, plavix and high intensity statin Follow up neurology recommendations No arrhythmias on telemetry Continue neurochecks NCHCT, CTA, Carotid ultrasound Continue to monitor on telemetry for arrhythmia 1. The right internal carotid artery shows no hemodynamically significant stenosis. 2. The left internal carotid artery shows no hemodynamically significant stenosis. 1. Old left temporal occipital infarct. 2. No acute intracranial abnormality. No acute abnormality CTA head. Chest pain History of CVA and MN Continue statin and antiplatelets therapy Echo Moderately decreased EF of 30% with regional wall motion abnormalities as described above. Hypertension Continue atenolol and lisinopril Hyperlipidemia Continue atorvastatin Diabetes mellitus Hold oral hypoglycemics Accuchecks TIDAC Increase novolog sliding scale insulin Diabetic diet diet DVT ppx-heparin subcutaneous DNR/DNI PT/OT evaluations Problem List: 1. Acute ischemic stroke Pain Ratin Pain Location: n/a Pain Goal: Pain 4 or less Pain Plan: prn Tomorrow's Labs & Rationales: none
[2017-08-26 07:06] VITALS: BP 118/70
--- NOTE | 2017-08-26 08:27 | ECHOCARDIOGRAM REPORT ---
NEELAM FARNSWORTH Age: 66 : 1950 Gender: M Exam Date: 08/25/2017 09:38 Exam Location: [address] Ht (in): 68 Wt (lb): 190 BSA: 2.05 BP: 154 / 74 Ordering Physician: Doron Dunbar MD Referring Physician: Doron Dunbar MD Technologist: Fauzia Jonas [facility] Room Number: 188 Indications: TIA Rhythm: Sinus Technical Quality: good FINDINGS Left Ventricle Normal left ventricular size with mild left ventricular hypertrophy. Moderately decreased systolic function with akinetic apex and severe hypokinesis of the mid to distal inferior, anterior and anteroseptal wall. Scar noted in the anterior wall. Normal left ventricular diastolic filling pattern for age. The ejection fraction is visually estimated at 30%. Right Ventricle The right ventricle is normal in size and function. Right Atrium The right atrium is normal in size. Left Atrium The left atrium is normal in size. The interatrial septum is intact. Mitral Valve The mitral valve demonstrates mild posterior annular calcification with normal function. There is trace mitral regurgitation. Aortic Valve Mildly thickened aortic valve without significant sclerosis or stenosis. There is no aortic regurgitation. Tricuspid Valve The tricuspid valve is normal in structure and function. There is trace tricuspid regurgitation. Pulmonary artery systolic pressure is normal. Pulmonic Valve Structurally normal pulmonic valve. There is no pulmonic regurgitation. Pericardium Normal pericardium without effusion. No pleural effusion. Great Vessels Normal aortic root dimension. Mildly enlarged ascending aorta. CONCLUSIONS 1. Moderately decreased EF of 30% with regional wall motion abnormalities as described above. 2. Mild left ventricular hypertrophy. 3. Trace mitral regurgitation. 4. Trace tricuspid regurgitation. 5. Mild enlarged ascending aorta. Chance Calvo M.D. (Electronically Signed) Final Date: 26 Aug 2017 08:26 MEASUREMENTS (Male / Female) Normal Values 2D ECHO LV Diastolic Diameter PLAX 4.7 cm 4.2 - 5.9 / 3.9 - 5.3 cm LV Systolic Diameter PLAX 2.8 cm 2.1 - 4.0 cm LV Fractional Shortening PLAX 40.4 % 25 - 46 % LV Ejection Fraction 2D Teich 71.1 % IVS Diastolic Thickness 1.3 cm LVPW Diastolic Thickness 1.3 cm LV Relative Wall Thickness 0.6 RV Internal Dim ED PLAX 3.1 cm 1.9 - 3.8 cm LVOT Diameter 2.3 cm Aortic Root Diameter 3.3 cm LA Systolic Diameter LX 3.6 cm 3.0 - 4.0 / 2.7 - 3.8 cm LA Volume 38.0 cm 18 - 58 / 22 - 52 cm Ascending Aorta Diameter 3.9 cm DOPPLER AV Peak Velocity 136.0 cm/s AV Peak Gradient 7.4 mmHg AV Mean Velocity 105.0 cm/s AV Mean Gradient 5.0 mmHg AV Velocity Time Integral 36.9 cm LVOT Peak Velocity 122.0 cm/s LVOT Peak Gradient 6.0 mmHg LVOT Mean Velocity 87.9 cm/s LVOT Mean Gradient 3.0 mmHg LVOT Velocity Time Integral 30.6 cm LVOT Stroke Volume 127.1 cm AV Area Cont Eq vti 3.4 cm AV Area Cont Eq pk 3.7 cm MV Peak Velocity 108.0 cm/s MV Peak Gradient 4.7 mmHg MV Mean Velocity 63.0 cm/s MV Mean Gradient 2.0 mmHg Mitral E Point Velocity 79.5 cm/s Mitral A Point Velocity 93.8 cm/s Mitral E to A Ratio 0.8 MV PHT Velocity 97.0 cm/s MV Deceleration Freestone 252.0 cm/s MV Pressure Half Time 115.5 ms MV Area PHT 1.9 cm MV Deceleration Time 240.0 ms TR Peak Velocity 241.0 cm/s TR Peak Gradient 23.2 mmHg Right Atrial Pressure 5.0 mmHg Pulmonary Artery Systolic Pressu 28.2 mmHg Right Ventricular Systolic Press 28.2 mmHg PV Peak Velocity 132.0 cm/s PV Peak Gradient 7.0 mmHg PV Mean Velocity 83.2 cm/s PV Mean Gradient 3.0 mmHg PV Velocity Time Integral 28.1 cm LV E' Lateral Velocity 7.2 cm/s Mitral E to LV E' Lateral Ratio 11.0 LV E' Septal Velocity 6.5 cm/s Mitral E to LV E' Septal Ratio 12.2
--- NOTE | 2017-08-26 12:50 | MRI REPORT ---
EXAMINATION: MR BRAIN WITHOUT CONTRAST CLINICAL INFORMATION: Transient left hemiplegia. COMPARISON: Head CT and CTA head from 08/25/2017. TECHNIQUE: MRI of the brain without contrast was obtained using routine sequences. FINDINGS: There is a platelike area of restricted diffusion involving the right caudate nucleus with extension into the right lentiform nucleus as well as small foci involving the anterior right insular cortex. There is no associated susceptibility artifact to suggest hemorrhagic transformation. There is faint associated T2 prolongation and minor regional mass effect without shift of the normally midline structures. There is no extra-axial collection or shift of the normally midline structures. There is mild generalized prominence of the ventricles, sulci, and extra-axial series of spaces. There is mild scattered T2 prolongation in the bihemispheric white matter. There is a chronic infarct in the left MANAGER EPIC territory with encephalomalacia and gliosis involving the left posteromedial temporal lobe and a portion of the left occipital lobe. The major arterial and venous flow voids are preserved. The craniocervical junction and supersellar region appear unremarkable. There is artifact at the C3 level suggesting anterior cervical discectomy and fusion, partially visualized, accounting for which marrow signal is preserved. No upper cervical adenopathy. There is mucosal thickening in the ethmoid air cells, sphenoid air cells, and right greater than left maxillary sinuses. The nasal cavity, nasopharynx, and mastoid air cells are clear. There have been bilateral ocular lens extractions. IMPRESSION: Acute brain ischemia involving the right basal ganglia and anterior insular cortex, as above. There is minor regional mass effect without shift of the normally midline structures. Chronic left MANAGER EPIC territory infarct. Mild chronic microangiopathy and volume loss.
[2017-08-26 14:00] VITALS: BP 120/70
--- NOTE | 2017-08-26 17:34 | Cons- Cardiology ---
General Information and HPI Consulting Request Date of Consult: 08/26/17 Requested By: Yasir Rosenbaum MD History of Present Illness: Mr. Sandhu is a 66 year old male with history of dyslipidemia, diabetes, peripheral vascular disease s/p stent to his LLE and coronary artery disease s/p old anterior NE with multiple intracardiac stents. Rissa carries a history of a CVA and presented to [facility] with a left facial droop consistent with another cerebral vascular event. The patient reports an upper midsternal chest discomfort which awakened him from sleep. He has noted intermittent chest pain for about three months but no workup for this was pursued. The discomfort is a mild, non-radiating achiness that is sometimes associated with diaphoresis. It typically lasts for a few minutes before spontaneously resolving. Later in the day his family found him on the floor. He reports a left sided weakness and he was noted to have slurred speech. It should be noted that the patient has some degree of dementia and his memory may of the events may be poor. Fortunately, the patient's facial droop, slurred speech and left sided weakness have abated. Allergies/Medications Allergies: Coded Allergies: naproxen (From ALEVE) (COMA 08/25/17) Home Med List: Aspirin (Aspirin*) 81 MG TAB.CHEW 1 TAB PO DAILY HEART (Reported) Atenolol 50 MG TABLET 1 TAB PO DAILY HTN (Reported) Atorvastatin Calcium (Lipitor) 10 MG TABLET 1 TAB PO DAILY CHOL (Reported) Glipizide 5 MG TABLET 1 TAB PO BID DM (Reported) Lisinopril 10 MG TABLET 1 TAB PO DAILY HTN (Reported) Sitagliptin Phos/Metformin HCl (Janumet 50-500 MG Tablet) 50 MG-500 MG TABLET 1 TAB PO DAILY DM (Reported) Review of Systems Review of Systems: A review of systems is not reliably obtainable from this patient. 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 Home Smoking Status: Current Everyday Smoker (20 PPY) ETOH Use: occasional use Illicit Drug Use: denies illicit drug use Functional Ability ADLs Independent: dressing, eating, toileting, bathing. IADLs Independent: shopping, housework, finances, food prep, telephone, transportation , medication admin. Exam & Diagnostic Data Vital Signs and I&O Vital Signs Date Time Temp Pulse Resp B/P B/P Pulse O2 O2 Flow FiO2 Mean Ox Delivery Rate 08/26 1400 98.2 60 20 120/70 94 08/26 0757 64 140/82 08/26 0757 64 140/82 08/26 0706 98.1 67 18 118/70 94 Room Air 08/25 2215 97.8 88 18 118/62 96 Room Air Intake & Output 08/26 1600 08/26 0800 08/26 0000 08/25 1600 08/25 0800 08/25 0000 Intake Total 1000 220 220 600 Output Total 150 Balance 1000 220 220 600 -150 Intake, Oral 1000 220 220 600 Output, Urine 150 Patient 167 lb 165 lb 1901 lb Weight Weight Standing Scale Measurement Method Physical Exam: General: WD/WN male in NAD; alert and oriented x 3 HEENT: NC/AT, PERRL, EOM Neck: no JVD, no carotid bruit Heart: RRR with 2/6 systolic murmur Lungs: clear bilaterally ABdomen: soft, NT, +ve bowel sounds Extremities: no edema Skin: psoriatic patches noted Assessment/Plan Assessment/Plan * This patient is a vasculopath with multiple CVA's, peripheral vascular disease with stent to her lower extremities and a large anterior NE s/p three prior cardiac stents. He does have chest discomfort described as an achiness with a disturbing history of the pain being bad enough to awaken him from sleep. The patient admits to not communicating these symptoms to others and his memory is also poor. The patient has poorly controlled diabetes and continues to smoke. Finally, this patient has evidence of a poor EF from a prior cardiac event and may not due well in the setting of another event. Considering the above, I would be inclined to pursue a cardiac catheterization. This patient is at risk for stroke during a cardiac catheterization and this has been discussed with both the family and the patient. We will await there decision. * Continue aspirin, Plavix, Lipitor, Atenolol and his ACEI. Begin a NTG patch at 0.2mg/hr for 12 hours daily. * Check on more set of cardiac enzymes. Consult Acknowledgment - Thank you for your consult request.
--- NOTE | 2017-08-26 22:13 | ELECTROENCEPHALOGRAM REPORT ---
Electroencephalogram Report Electroencephalogram Results Date of service: 08/26/17 Attending MD: Yasir Rosenbaum MD Journeyman Pipefitter: Brenton Farmer Test Utilizes: 10-20 system, 21 lead 18 channel digital recording Pertinent Hx/Physical/Neuro Findings/Clin Diagnosis: transient left sided weakness Inpatient Medications: Current Medications Sig/Ra Start time Last Medication Dose Route Stop Time Status Admin Acetaminophen 650 MG Q4P PRN 08/26 1315 AC PO Aspirin 81 MG DAILY 08/25 0900 AC 08/26 PO 0754 Atenolol 50 MG DAILY 08/25 0900 AC 08/26 PO 0757 Atorvastatin Calcium 80 MG DAILY 08/25 0900 AC 08/26 PO 0754 Clopidogrel Bisulfate 75 MG DAILY 08/26 0914 AC 08/26 PO 1031 Heparin Sodium 5,000 UNIT Q8 08/25 2200 AC 08/26 (Porcine) SC 1250 Insulin Aspart 0 TIDAC 08/25 1200 AC 08/26 SC 1817 Lisinopril 10 MG DAILY 08/25 0900 AC 08/26 PO 0757 Magnesium Oxide 400 MG ONE ONE 08/26 1400 DC 08/26 PO 08/26 1401 1817 Magnesium Oxide 400 MG ONE ONE 08/26 1315 DC 08/26 PO 08/26 1316 1431 Magnesium Oxide 400 MG BID 08/25 2100 DC 08/26 PO 08/26 0901 0754 Nitroglycerin 0.2 MG DAILY 08/26 1827 AC TOP Patient Medication 1 ED ONE ONE 08/26 1415 DC Teaching ED 08/26 1416 Triamcinolone 1 LUCILLE BID 08/26 0900 AC 08/26 Acetonide TOP 0757 Interpretation: EEG in wake state Background is 9 cps activity posteriorly Muscle artifact in frontal head regions Photic stim: no abnormalities No focal or epileptiform activities Impression: Normal EEG in wake state
[2017-08-26 22:22] VITALS: BP 114/86
[2017-08-27 06:34] VITALS: BP 108/60
--- NOTE | 2017-08-27 07:14 | PN- Housestaff ---
Rishabh TRIANA,[facility] 08/27/17 0713: Subjective Follow-up For: CVA Chest Pain Tele-Events Since Last Visit: Sinus Ricky HR 53-55 Subjective: Patient said he woke up with a bad headache this morning which resloved with tylenol. Reports resolution of his left sided weakness, facial droop and also chest pain. Says will go for a cardiac cath if he needs it. Review of Systems Constitutional: Reports: no symptoms. EENTM: Reports: no symptoms. Cardiovascular: Reports: no symptoms. Respiratory: Reports: no symptoms. Gastrointestinal: Reports: no symptoms. Genitourinary: Reports: no symptoms. Musculoskeletal: Reports: no symptoms. Skin: Reports: no symptoms. Neurological/Psychological: Reports: no symptoms. Hematologic/Endocrine: Reports: no symptoms. Immunologic/Allergic: Reports: no symptoms. Objective Last 24 Hrs of Vital Signs/I&O Vital Signs Date Time Temp Pulse Resp B/P B/P Pulse O2 O2 Flow FiO2 Mean Ox Delivery Rate 08/27 0634 97.9 53 20 108/60 94 Room Air 08/26 2222 98.7 57 19 114/86 97 08/26 1400 98.2 60 20 120/70 94 Intake & Output 08/27 1600 08/27 0800 08/27 0000 Intake Total 300 400 Output Total Balance 300 400 Intake, Oral 300 400 Patient 168 lb Weight Physical Exam General Appearance: Alert, Oriented X3, Cooperative, No Acute Distress Skin: No Rashes, No Breakdown Cardiovascular: Regular Rate, Normal S1, Normal S2 Lungs: Clear to Auscultation, Normal Air Movement Abdomen: Normal Bowel Sounds, Soft, No Tenderness Neurological: Normal Speech, Strength at 5/5 X4 Ext, Normal Tone, Sensation Intact, Cranial Nerves 3-12 NL Extremities: No Clubbing, No Cyanosis, No Edema, erythematous macular lesion( psoriatic) on left ant leal. Vascular: Normal Pulses Current Medications: Current Medications Sig/Ra Start time Last Medication Dose Route Stop Time Status Admin Acetaminophen 650 MG Q4P PRN 08/26 1315 AC 08/27 PO 0730 Aspirin 81 MG DAILY 08/25 09 AC 08/27 PO 0807 Atenolol 50 MG DAILY 08/25 0900 AC 08/26 PO 0757 Atorvastatin Calcium 80 MG DAILY 08/25 09 AC 08/27 PO 0807 Clopidogrel Bisulfate 75 MG DAILY 08/26 0914 AC 08/27 PO 0807 Heparin Sodium 5,000 UNIT Q8 08/25 2200 AC 08/27 (Porcine) SC 0711 Insulin Aspart 0 TIDAC 08/25 1200 AC 08/27 SC 0807 Lisinopril 10 MG DAILY 08/25 0900 AC 08/26 PO 0757 Magnesium Oxide 400 MG ONE ONE 08/26 1400 DC 08/26 PO 08/26 1401 1817 Magnesium Oxide 400 MG ONE ONE 08/26 1315 DC 08/26 PO 08/26 1316 1431 Nitroglycerin 0.2 MG 2200 08/27 2200 AC TOP Nitroglycerin 0.2 MG DAILY 08/26 1827 DC 08/26 TOP 2246 Patient Medication 1 ED ONE ONE 08/26 1415 DC Teaching ED 08/26 1416 Triamcinolone 1 LUCILLE BID 08/26 0900 AC 08/27 Acetonide TOP 0807 Last 24 Hrs of Lab/Marvin Results Last 24 Hrs of Labs/Mics: Laboratory Tests 08/26/17 1855: Troponin I < 0.01 Assessment/Plan Assessment: 66 year old male with PMH of CVA, HTN, NC, HLD, and DM presented left hemiplegia admitted for stroke evaluation. His symptoms improved but MRI demonstrates an acute right basal ganglia infarction. CVA; MRI showed acute infarct in right basal ganglia and ant insular cortex. * Symptoms resolved. * Continue aspirin, plavix and high intensity statin. * Follow up neurology recommendations * No arrhythmias on telemetry, continue to monitor * Continue neurochecks * Normal EEG. * Head CT, CTA head,and Carotid ultrasound negative Chest pain * History of CVA and NC * Continue statin and antiplatelets therapy * Echo Moderately decreased EF of 30% with regional wall motion abnormalities. * Cardiology Consult, wants a cardiac cath but at high risk of stroke during the catheterization. * Also Patient's family wants to change the code status to DNR/DNI saying patient has dementia and he is not able to make is own decision. Patient is occasionally forgetful but AO x 3 and seems competent to make decisions. records from his neurologist shows a MMS score of 27(2010). Might need repeat dementia evaluation but will keep him FC for now. Patient also agreeable to go for cardiac cath. Discussed with Daughter, Kinjal. Hypertension * Continue atenolol and lisinopril, Will hold today for bradycardia and BP of 98 /54. Hyperlipidemia * Continue atorvastatin Diabetes mellitus * Hold oral hypoglycemics * Accuchecks TIDAC * Novolog sliding scale insulin Diabetic diet diet DVT ppx-heparin subcutaneous DNR/DNI PT/OT evaluations Problem List: 1. TIA (transient ischemic attack) Pain Ratin Pain Location: NA Pain Goal: Remain pain free Pain Plan: Pain Pathway Tomorrow's Labs & Rationales: None Yasir Rosenbaum MD 08/27/17 1115: Attending MD Review Statement Attending Statement Attending MD Statement: examined this patient, discuss w/resident/PA/SUPERVISOR PICKING CREW, agreed w/resident/PA/SUPERVISOR PICKING CREW, reviewed EMR data (avail) Attending Assessment/Plan: 66M PMH CAD/stents, PVD, poorly controlled DM admitted with transient left sided weakness with MRI showing acute CVA of the right basal ganglia and anterior insular cortext, on ASA, Plavix, and Atorvastatin, with recent history of intermittent chest pain. Patient has no complaints today and feels well. His glucose levels remain elevated. Neuro exam normal. 1. Acute right CVA 2. Type 2 hyperglycemia 3. Chest pain at rest Plan - Continue on telemetry - Continue ASA, Plavix, Atorvastatin - Would likely benefit from long acting insulin coverage while inpatient - Continue insulin sliding scale - Follow neurology and cardiology recommendations - Continue home medications - Continue to work with PT - DVT PPx
[2017-08-27 14:00] VITALS: BP 110/66
[2017-08-27] MEDS ORDERED: ATORVASTATIN CA80 M1 PO (15:18)
[2017-08-27] MEDS ORDERED: NITROGLYCERIN1 EAC3 TOP (15:18)
--- NOTE | 2017-08-27 15:24 | Patient Discharge Instructions ---
Discharge Instructions General Discharge Information You were seen/treated for: CVA Chest pain Special Instructions: Please follow up with your PCP and customer facilities supervisor within a week after discharge. Diet Continue normal diet: Yes Recommended Diet: Diabetic Activity Full Activity/No Limits: Yes Activity Self Limited: Yes Acute Coronary Syndrome Inclusion Criteria At DC or during hospital stay patient has or had the following: ACS DIAGNOSIS No Discharge Core Measures Meds if any: Prescribed or Continued at Discharge Meds if any: NOT Prescribed or Continued at Discharge Congestive Heart Failure Inclusion Criteria At DC or during hospital stay patient has or had the following: CHF DIAGNOSIS No Discharge Core Measures Meds if any: Prescribed or Continued at Discharge Meds if any: NOT Prescribed or Continued at Discharge Cerebrovascular accident Inclusion Criteria At DC or during hospital stay patient has or had the following: CVA/TIA Diagnosis Yes Discharge Core Measures Meds if any: Prescribed or Continued at Discharge Antithrombotic Yes Statin (required if LDL =>70) Yes Meds if any: NOT Prescribed or Continued at Discharge Venous thromboembolism Inclusion Criteria VTE Diagnosis No VTE Type NONE VTE Confirmed by (Test) NONE Discharge Core Measures - Per Current guidelines, there needs to be overlap - treatment for the first 5 days of Warfarin therapy. - If discharged on Warfarin prior to 5 days of - overlap therapy, the patient will need to be - assessed for post discharge needs including - *Post discharge parental anticoagulation - *Warfarin and/or parental anticoagulation education - *Follow up date to check INR post discharge At least 5 days overlap therapy as Inpatient No Meds if any: Prescribed or Continued at Discharge Note: Overlap Therapy is Warfarin and Anticoagulant Meds if any: NOT Prescribed or Continued at Discharge
--- NOTE | 2017-08-27 16:16 | Discharge Summary ---
Visit Information Visit Dates Admission Date: 08/26/17 Discharge Date: 08/28/17 Hospital Course Course Attending Physician: Yasir Rosenbaum MD Primary Care Physician: Rama TRIANA,Anil Torres Hospital Course: 66 year old gentlemant current smoker with PMH significant for prostate cancer (2010) s/p surgery which was complicated by CVA,MO (1999), HLD,DM, melanoma admitted to our hospital 08/25/17 around 2:55 am for an episode of unresponsiveness,left facial droop and left motor weakness. Vital signs on admission:Blood pressure 181/78, pulse 64, temperature 97.5, bedside pulse ox 98 on 2 L nasal oxygen Labs on admission: CBC showed WBC 10.3, hemoglobin 14.6, hematocrit 43.8, platelets 177, sodium 141, potassium 3.8, BUN 17, creatinine 0.9, glucose 276, ALT 34, AST 15,INR 0.97, serum alcohol less than 10 Head CTA: 1. Old left temporal occipital infarct. 2. No acute intracranial abnormality. ED course: The time of onset of his symptoms was uncertain and neurology was consulted and given the uncertain time of onset it was determined that he was not TPA candidate. 08/25/2017 4:31:03 AM He was noted by ER physician to be at baseline with no appreciable neurologic deficit and family agreed. Admitted to the telemetry floor and the following issues were addressed: CVA MRI showed acute infarct in right basal ganglia and ant insular cortex. no residual focal deficits were note. Continued aspirin, plavix and was started on high intensity statin. Carotid ultrasound negative.Carotid ultrasound showed Right and left internal carotid artery flow in the 0-49% stenosis category by duplex Doppler spectral waveform analysis. In view of his unresponsivess EEG was done to rule out the possiblity of seizure. Chest pain He endorsed chest discomfort described as an achiness with a history of the pain being bad enough to awaken him from sleep. Given that he is a vasculopath with history of multiple CVA's, peripheral vascular disease with stent to her lower extremities and a large anterior MO s/p three prior cardiac stents, evidence of a poor EF from a prior cardiac event in the setting of poorly controlled diabetes and active smoking decision was made pursue a cardiac catheterization. It was communication to the family by his ic design manager Dr. Calvo the increased risk for stroke during a cardiac catheterization . He was Continued on atenolol and lisinopril and held transienty ly for bradycardia and hypotension. Diabetes mellitus His fingersticks remained elevated >250s, he was placed on high dose ISS and he will need to be started on long acting insulin as outpatient. Diabetic diet diet DVT ppx-heparin subcutaneous code status: Full code of note: Patient's family wanted to change the code status to DNR/DNI stating dementia as the reason. On our examination he is occasionally forgetful but AO x 3 and seemed competent to make decisions. Records from his neurologist shows a MMS score of 27(2010). And per his wishes he remained a Full code Might need Further dementia evaluation. Mr. Sandhu and family were agreeable to be transferred for cardiac cath. Allergies: Coded Allergies: naproxen (From ALEVE) (COMA 08/25/17) Significant Procedures: SERVICE DATE: 08/25/17 EXAM TYPE: CAT - CT HEAD WO IV CONTRAST FINDINGS: There is focal encephalomalacia from an old infarct of the left temporal occipital lobe. There is no evidence of acute intracranial hemorrhage or acute territorial infarction. No abnormal mass effect or midline shift is seen. Santos to white matter differentiation is well preserved. No extra-axial fluid collections are identified. There is atrophy with prominence of the ventricles and the sulci and hypodensity of the periventricular white matter due to chronic small vessel ischemic disease. There is vascular calcifications of the internal carotid arteries bilaterally. The osseous structures and soft tissues are normal. The mastoid air cells and visualized portions of the paranasal sinuses are well aerated. IMPRESSION: No acute intracranial pathology. SERVICE DATE: 08/25/17 EXAM TYPE: CAT - CT HEAD ANGIOGRAM FINDINGS: HEAD: Patient previously had a noncontrast CT earlier today which demonstrated an old infarct in the left temporal parietal lobe with focal encephalomalacia. CRANIAL CTA: There is normal opacification of the major intracranial vessels. No acute proximal large vessel occlusion, focal flow-limiting stenosis, or saccular intracranial aneurysm is identified. No abnormal parenchymal enhancement or regional oligemia is visualized. There are vascular wall calcification of the internal carotid arteries at the carotid artery siphon bilaterally there is no stenosis of the vessels. There is normal enhancement of the major intracranial venous structures. IMPRESSION: 1. Old left temporal occipital infarct. 2. No acute intracranial abnormality. No acute abnormality CTA head. SERVICE DATE: 08/25/17 EXAM TYPE: US - [id number] DOPPLER FINDINGS: On the right, there is a small amount of calcified plaque within the carotid bulb and origin of the internal and external carotid arteries.. In the distal CCA, the peak systolic velocity is 75 cm/sec. In the proximal ICA, the peak systolic velocity is 73 cm/sec, and the end diastolic velocity is 23 cm/sec. The peak systolic velocity of the external carotid artery is 118 cm/s. On the left, there is a small amount of calcified plaque seen within the bulb and extending into the origin of the internal carotid artery. In the distal CCA, the peak systolic velocity is 92 cm/sec. In the proximal ICA, the peak systolic velocity is 59 cm/sec, and the end diastolic velocity is 19 cm/sec. Peak systolic velocity of the external carotid artery is 93 cm/s. The vertebral arteries show antegrade flow with normal waveforms bilaterally. IMPRESSION: 1. The right internal carotid artery shows no hemodynamically significant stenosis. 2. The left internal carotid artery shows no hemodynamically significant stenosis. Right and left internal carotid artery flow in the 0-49% stenosis category by duplex Doppler spectral waveform analysis. SERVICE DATE: 08/25/17 EXAM TYPE: CARD - ECHOCARDIOGRAM FINDINGS Left Ventricle Normal left ventricular size with mild left ventricular hypertrophy. Moderately decreased systolic function with akinetic apex and severe hypokinesis of the mid to distal inferior, anterior and anteroseptal wall. Scar noted in the anterior wall. Normal left ventricular diastolic filling pattern for age. The ejection fraction is visually estimated at 30%. Right Ventricle The right ventricle is normal in size and function. Right Atrium The right atrium is normal in size. Left Atrium The left atrium is normal in size. The interatrial septum is intact. Mitral Valve The mitral valve demonstrates mild posterior annular calcification with normal function. There is trace mitral regurgitation. Aortic Valve Mildly thickened aortic valve without significant sclerosis or stenosis. There is no aortic regurgitation. Tricuspid Valve The tricuspid valve is normal in structure and function. There is trace tricuspid regurgitation. Pulmonary artery systolic pressure is normal. Pulmonic Valve Structurally normal pulmonic valve. There is no pulmonic regurgitation. Pericardium Normal pericardium without effusion. No pleural effusion. Great Vessels Normal aortic root dimension. Mildly enlarged ascending aorta. CONCLUSIONS 1. Moderately decreased EF of 30% with regional wall motion abnormalities as described above. 2. Mild left ventricular hypertrophy. 3. Trace mitral regurgitation. 4. Trace tricuspid regurgitation. 5. Mild enlarged ascending aorta. SERVICE DATE: 08/26/17- EXAM TYPE: MRI - MRI-HEAD W/O ELE FINDINGS: There is a platelike area of restricted diffusion involving the right caudate nucleus with extension into the right lentiform nucleus as well as small foci involving the anterior right insular cortex. There is no associated susceptibility artifact to suggest hemorrhagic transformation. There is faint associated T2 prolongation and minor regional mass effect without shift of the normally midline structures. There is no extra-axial collection or shift of the normally midline structures. There is mild generalized prominence of the ventricles, sulci, and extra-axial series of spaces. There is mild scattered T2 prolongation in the bihemispheric white matter. There is a chronic infarct in the left EVENT DESIGNER territory with encephalomalacia and gliosis involving the left posteromedial temporal lobe and a portion of the left occipital lobe. The major arterial and venous flow voids are preserved. The craniocervical junction and supersellar region appear unremarkable. There is artifact at the C3 level suggesting anterior cervical discectomy and fusion, partially visualized, accounting for which marrow signal is preserved. No upper cervical adenopathy. There is mucosal thickening in the ethmoid air cells, sphenoid air cells, and right greater than left maxillary sinuses. The nasal cavity, nasopharynx, and mastoid air cells are clear. There have been bilateral ocular lens extractions. IMPRESSION: Acute brain ischemia involving the right basal ganglia and anterior insular cortex, as above. There is minor regional mass effect without shift of the normally midline structures. Chronic left EVENT DESIGNER territory infarct. Mild chronic microangiopathy and volume loss. Disposition Summary Disposition Principal Diagnosis: CVA Additional Diagnosis: Chest Pain Diabetes Discharge Disposition: other general hospital Discharge Instructions General Discharge Information Code Status: Full Code Patient's Diet: heart health.y Patient's Activity: as tolerated Follow-Up Instructions/Appts: follow up with your PCP and ic design manager within a week after discharge Medications at Discharge Discharge Medications: Stop taking the following medications: Atorvastatin Calcium (Lipitor) 10 MG TABLET ORAL DAILY Continue taking these medications: Aspirin (Aspirin*) 81 MG TAB.CHEW 1 Tablet ORAL DAILY Comments: Last Taken: 08/27/17 Time: 8AM Sitagliptin Phos/Metformin HCl (Janumet 50-500 MG Tablet) 50 MG-500 MG TABLET 1 Tablet ORAL DAILY Comments: NOT GIVEN IN HOSPITAL Atenolol (Atenolol) 50 MG TABLET 1 Tablet ORAL DAILY Comments: Last Taken: 08/26/17 Time: 8AM Lisinopril (Lisinopril) 10 MG TABLET 1 Tablet ORAL DAILY Comments: Last Taken: 08/26/17 Time: 8AM Glipizide (Glipizide) 5 MG TABLET 1 Tablet ORAL TWICE DAILY Comments: NOT GIVEN IN HOSPITAL Start taking the following new medications: Atorvastatin Calcium (Atorvastatin Calcium) 80 MG TABLET 1 Tablet ORAL DAILY Qty = 30 No Refills Comments: Last Taken: 08/27/17 Time: 8AM Nitroglycerin (Nitroglycerin Patch) 0.2 MG/HOUR PATCH.TD24 0.2 Milligram On the skin DAILY Qty = 15 No Refills Comments: Last Taken: 08/27/17 Time: 9PM Triamcinolone Acetonide (Triamcinolone Acetonide) 0.1 % CREAM..G. 1 Application On the skin TWICE DAILY Qty = 1 No Refills Comments: Last Taken: 08/27/17 Time: 8AM Copies To: Rama TRIANA,Anil Torres
--- NOTE | 2017-08-27 16:26 | PN- Cardiology ---
Subjective Subjective: * No complaints. * sinus rhythm Objective Vital Signs and I&Os Vital Signs Date Time Temp Pulse Resp B/P B/P Pulse O2 O2 Flow FiO2 Mean Ox Delivery Rate 08/27 1400 98.2 54 20 110/66 95 08/27 1034 55 98/54 08/27 1034 55 98/54 08/27 0634 97.9 53 20 108/60 94 Room Air 08/26 2221 98.7 57 19 114/86 97 Intake & Output 08/27 1600 08/27 0800 08/27 0000 08/26 1600 08/26 0808/26 0000 Intake Total 413 642 5260 220 620 Output Total Balance 070 417 1828 220 620 Intake, Oral 602 718 8636 220 620 Patient 168 lb 167 lb Weight Physical Exam: General: WD/WN male in NAD; alert and oriented x 3 HEENT: NC/AT, PERRL, EOM Neck: no JVD, no carotid bruit Heart: RRR with 2/6 systolic murmur Lungs: clear bilaterally ABdomen: soft, NT, +ve bowel sounds Extremities: no edema Skin: psoriatic patches noted Assessment/Plan Assessment/Plan * This patient is a vasculopath with multiple CVA's, peripheral vascular disease with stent to her lower extremities and a large anterior [place] s/p three prior cardiac stents. He does have chest discomfort described as an achiness with a disturbing history of the pain being bad enough to awaken him from sleep. The patient admits to not communicating these symptoms to others and his memory is also poor. The patient has poorly controlled diabetes and continues to smoke. Finally, this patient has evidence of a poor EF from a prior cardiac event and may not due well in the setting of another event. Considering the above, I would be inclined to pursue a cardiac catheterization. This patient is at risk for stroke during a cardiac catheterization and this has been discussed with both the family and the patient. A cardiac catheterization is planned for tomorrow at [facility]. Keep NPO except medications over midnight. * Continue aspirin, Plavix, Lipitor, Atenolol and his ACEI. Begin a NTG patch at 0.2mg/hr for 12 hours daily. Continue telemetry? Yes
[2017-08-27] MEDS ORDERED: TRIAMCINOLONE A15 G1 TOP (16:44)
[2017-08-27 23:26] VITALS: BP 108/72
[2017-08-28 06:47] VITALS: BP 110/66
--- NOTE | 2017-08-28 07:57 | PN- Housestaff ---
Rishabh TRIANA,[facility] 08/28/17 0757: Subjective Follow-up For: CVA Chest pain Tele-Events Since Last Visit: Sinus Ricky 49-51 Subjective: Patient resting comfortably. No new complaints. Review of Systems Constitutional: Reports: no symptoms. EENTM: Reports: no symptoms. Cardiovascular: Reports: no symptoms. Respiratory: Reports: no symptoms. Gastrointestinal: Reports: no symptoms. Genitourinary: Reports: no symptoms. Musculoskeletal: Reports: no symptoms. Skin: Reports: no symptoms. Neurological/Psychological: Reports: no symptoms. Hematologic/Endocrine: Reports: no symptoms. Immunologic/Allergic: Reports: no symptoms. Objective Last 24 Hrs of Vital Signs/I&O Vital Signs Date Time Temp Pulse Resp B/P B/P Pulse O2 O2 Flow FiO2 Mean Ox Delivery Rate 08/28 0647 97.6 50 20 110/66 96 Nasal Cannula 08/27 2326 98.7 51 18 108/72 98 Room Air 08/27 1400 98.2 54 20 110/66 95 08/27 1034 55 98/54 08/27 1034 55 98/54 Intake & Output 08/28 1600 08/28 0800 08/28 0000 Intake Total 450 210 Output Total 400 Balance 50 210 Intake, IV 450 110 Intake, Oral 100 Output, Urine 400 Patient 165 lb Weight Weight Bed scale Measurement Method Physical Exam General Appearance: Alert, Oriented X3, Cooperative, No Acute Distress Skin: No Rashes, No Breakdown Cardiovascular: Regular Rate, Normal S1, Normal S2 Lungs: Normal Air Movement Abdomen: Normal Bowel Sounds, Soft, No Tenderness Extremities: No Clubbing, No Cyanosis, No Edema, Psoriatic lesion around left lower ant leal Current Medications: Current Medications Sig/Ra Start time Last Medication Dose Route Stop Time Status Admin Acetaminophen 650 MG Q4P PRN 08/26 1315 DCD 08/27 PO 0730 Aspirin 81 MG DAILY 08/25 09 DCD 08/27 PO 0807 Atenolol 50 MG DAILY 08/25 09 DCD 08/26 PO 0757 Atorvastatin Calcium 80 MG DAILY 08/25 09 DCD 08/27 PO 0807 Clopidogrel Bisulfate 75 MG DAILY 08/26 0914 DCD 08/27 PO 0807 Dextrose/Water 1,000 ML ONCE ONE 08/28 0000 DCD 08/28 IV 08/28 1319 0006 Heparin Sodium 5,000 UNIT Q8 08/25 2200 DCD 08/28 (Porcine) PR 0609 Insulin Aspart 0 TIDAC 08/25 1200 DC 08/27 SC 08/28 0000 1716 Insulin Detemir 3 UNITS BID 08/27 2100 DCD 08/27 SC 2140 Insulin Human Regular 0 Q6 08/28 0000 DCD 08/28 SC 0609 Lisinopril 10 MG DAILY 08/25 0900 DCD 08/26 PO 0757 Magnesium Sulfate 1 GM ONCE ONE 08/27 1830 DC 08/27 Dextrose/Water 100 ML IV 08/27 2228 2100 Nitroglycerin 0.2 MG 08/27 2200 DCD 08/27 TOP 2139 Triamcinolone 1 LUCILLE BID 08/26 0900 DCD 08/27 Acetonide TOP 2138 Last 24 Hrs of Lab/Marvin Results Last 24 Hrs of Labs/Mics: Laboratory Tests 08/27/17 1535: Anion Gap 12, Estimated GFR > 60, BUN/Creatinine Ratio 22.0, Phosphorus 4.5, Magnesium 1.7 Assessment/Plan Assessment: 66 year old male with PMH of CVA, HTN, ME, HLD, and DM presented left hemiplegia admitted for stroke evaluation. His symptoms improved but MRI demonstrates an acute right basal ganglia infarction. CVA; MRI showed acute infarct in right basal ganglia and ant insular cortex. * Symptoms resolved. * Continue aspirin, plavix and high intensity statin. * Follow up neurology recommendations * No arrhythmias on telemetry, continue to monitor * Continue neurochecks * Normal EEG. * Head CT, CTA head,and Carotid ultrasound negative Chest pain * History of CVA and ME * Continue statin and antiplatelets therapy * Echo Moderately decreased EF of 30% with regional wall motion abnormalities. * Cardiology Consult, wants a cardiac cath but at high risk of stroke during the catheterization. Patient transferred to [facility] for cardiac catheterization. * Also Patient's family wants to change the code status to DNR/DNI saying patient has dementia and he is not able to make is own decision. Patient is occasionally forgetful but is AO x 3 and seems competent to make decisions. records from his neurologist shows a MMS score of 27(2010). Might need repeat dementia evaluation but will keep him FC for now. Patient also agreeable to go for cardiac cath. Discussed with Daughter, Kinjal. Hypertension * Continue atenolol and lisinopril. Hyperlipidemia * Continue atorvastatin Diabetes mellitus * Hold oral hypoglycemics * Accuchecks TIDAC * Novolog sliding scale insulin Diabetic diet diet DVT ppx-heparin subcutaneous DNR/DNI PT/OT evaluations Problem List: 1. Chest pain 2. Acute ischemic stroke Pain Ratin Pain Location: NA Pain Goal: Remain pain free Pain Plan: Pain Pathway Tomorrow's Labs & Rationales: None Yasir Rosenbaum MD 08/28/17 1104: Attending MD Review Statement Attending Statement Attending MD Statement: examined this patient, discuss w/resident/PA/PHOTOTYPESETTING EQUIPMENT MONITOR, agreed w/resident/PA/PHOTOTYPESETTING EQUIPMENT MONITOR, reviewed EMR data (avail) Attending Assessment/Plan: 66M PMH CAD/stents, PVD, poorly controlled DM admitted with transient left sided weakness with MRI showing acute CVA of the right basal ganglia and anterior insular cortext, on ASA, Plavix, and Atorvastatin, with recent history of intermittent chest pain. Patient has no complaints today and feels well. His glucose levels remain elevated. Neuro exam normal. 1. Acute right CVA 2. Type 2 hyperglycemia 3. Chest pain at rest Plan - To be transferred for cardiac cath today - Continue ASA, Plavix, Atorvastatin - Follow neurology and cardiology recommendations - Continue home medications
== END 2017-08-28 08:18 | disposition short-term general hospital (02) | DRG 65 ==
LOC: ERH 02:52 → ERHI 05:41 → 1NO 05:41 → EDBEDREQ 06:13 → ERHI 06:16 → ENRESERV 06:20 → 1NO 06:45 → ENPENDDIS 08-28 07:33 → 1NO 08-28 08:18
PROVIDERS: Emergency Medicine
DX: I63.9 Cerebral infarction, unspecified (principal); I69.354 Hemiplegia and hemiparesis following cerebral infarction affecting left non-dominant side; E11.51 Type 2 diabetes mellitus with diabetic peripheral angiopathy without gangrene; F03.90 Unspecified dementia, unspecified severity, without behavioral disturbance, psychotic disturbance, mood disturbance, and anxiety; Z79.84 Long term (current) use of oral hypoglycemic drugs; F17.210 Nicotine dependence, cigarettes, uncomplicated; I25.2 Old myocardial infarction; E78.5 Hyperlipidemia, unspecified; I25.10 Atherosclerotic heart disease of native coronary artery without angina pectoris; L30.9 Dermatitis, unspecified; Z88.6 Allergy status to analgesic agent
CPT/HCPCS: 1NP; 70551; 36415; 82436; 93005; 93010; 93306; 95816; 97116-GP; 97161-GP; 97165-GO; G0480; G8978-GP; G8979-GP; G8980-GP; J1644; J1815; J3490; J7060